=== PATIENT | male | born 1950 | race Caucasian/White ===

== ENCOUNTER → 2017-07-01 | Outpatient (CLI) | payer OTHER, MEDICARE | LOC: FCPNEURO 21:00 | PROVIDERS: ATTEND Psychiatry & Neurology Sleep Medicine | DX: G47.33 Obstructive sleep apnea (adult) (pediatric) (principal) ==

== ENCOUNTER → 2017-07-12 | Outpatient (CLI) | payer OTHER, MEDICARE | LOC: BMCIMAGING 11:08 | PROVIDERS: ATTEND Internal Medicine | DX: J98.4 Other disorders of lung (principal) ==

== ENCOUNTER 2017-11-15 19:07 | Emergency (ER) | payer OTHER, MEDICARE ==
--- NOTE | 2017-11-15 19:20 | EDPHY ---
HPI/HX/ROS/PE/MDM Narrative: CHIEF COMPLAINT: No bowl movement for 5 days HISTORY OF PRESENT ILLNESS: The patient is a 66 y/o male with a history of constipation, complaining of not having a bowel movement for 5 days. For the past several years he has had intermittent episodes of constipation. He was advised to take magnesium citrate which has relieved his symptoms in the past. 2.5 weeks ago he began to have a bowel movement once every 3 days associated with hard stools. Denies blood in stool. On Saturday evening, 5 days ago, he had an episode of diarrhea but has not had a bowel movement since. He has increased his water intake and ate a bowl of special K without relief of his symptoms. Today he wanted to take magnesium citrate but was concerned about an adverse reaction with his prescriptions. He is not in any pain currently. Denies having a colonoscopy. Reports he has had a chest cold for 4 days. No fever, chills, chest pain, shortness of breath, palpitations, vomiting, urinary complaints, headache, lightheadedness. REVIEW OF SYSTEMS: Aside from elements discussed in the HPI, a comprehensive 10-point review of systems was reviewed and is negative. 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 HEENT: Atraumatic. Eyes: No icterus, no injection. Mouth: moist mucous membranes. No erythema or lesions. Neck: supple with no adenopathy. LUNGS: Clear to auscultation bilaterally, no wheezes, rhonchi or rales. CARDIAC: Mild tachycardia, no rubs, murmurs or gallops. ABDOMEN: Soft, overweight, nontender, nondistended, bowel sounds normal. BACK: No CVA tenderness. EXTREMITIES: No trauma. No edema. Range of motion is normal throughout. NEURO: Alert and oriented, grossly nonfocal. SKIN: Warm and dry, no rash. PSYCHIATRIC: Normal mentation, no agitation. Portions of this note were transcribed by a medical assistant instructor. I personally performed a history, physical exam, medical decision making, and confirmed accuracy of information the transcribed note. ED Course: The patient is a 66 y/o male with a history of constipation, presenting with not having a bowel movement for 5 days. On exam he has no tenderness or vomiting. Labs ordered. 1L IV NS administered. 2033: Patient's labs are normal. His symptoms are consistent with constipation. 2049: Reassessed patient and discussed laboratory findings. I have advised him to have a colonoscopy as he has never had one. I have also advised him to take magnesium citrate, Metamucil or MiraLax, or other high-fiber supplements for his constipation. Return precautions provided; patient is comfortable wiht this plan. MDM: Diff dx considered included constipation, poor diet, hypokalemia, dehydration. - Data Points Laboratory Results: Laboratory Results 11/15/17 19:55 11/15/17 19:55 Medications Given: Discontinued Medications Sodium Chloride (Ns) 1,000 mls @ 0 mls/hr IV ONCE ONE; Wide Open PRN Reason: Protocol Stop: 11/15/17 19:40 Last Admin: 11/15/17 19:58 Dose: 1,000 mls General Time Seen by Provider: 11/15/17 19:19 Initial Vital Signs: Initial Vital Signs Temperature (C) 37.0 C 11/15/17 19:11 Heart Rate 101 H 11/15/17 19:11 Respiratory Rate 18 11/15/17 19:11 Blood Pressure 162/100 H 11/15/17 19:11 O2 Sat (%) 91 L 11/15/17 19:11 O2 Delivery Mode Room Air Allergies/Adverse Reactions: Penicillins Allergy (Verified 11/15/17 19:15) Home Medications: Medication Instructions Recorded Aspirin [Aspirin 81mg (OTC)] 81 mg PO DAILY 12/01/12 Atorvastatin Calcium [Lipitor 10 10 mg PO DAILY 12/01/12 mg (RX)] Herbals/Supplements -Info Only 1 each PO AD 12/01/12 Losartan Potassium [Cozaar] 25 mg PO DAILY 12/01/12 Rosuvastatin Calcium 5 mg PO 11/15/17 Departure - Departure Disposition: Home, Routine, Self-Care Clinical Impression: History of constipation Constipation Qualifiers: Constipation type: other constipation type Qualified Code(s): K59.09 - Other constipation Condition: Good Instructions: Constipation (ED) Additional Instructions: Take magnesium citrate as directed. Drink half the bottle, wait several hours. If you do not have some significant stool output, you may drink the other half. I encourage you to stay well hydrated. Consider daily Metamucil or MiraLax or other high-fiber supplement to keep your bowels regular. You do need to stay well hydrated when you take any of these medications. Please follow up with your primary care physician as needed and arrange a colonoscopy as soon as possible. Referrals: Rama Witt MD [Primary Care Provider] - As per Instructions Report Scribed for: Melissa Mckeon Report Scribed by: Tricia Mena Date of Report: 11/15/17 Time of Report: 19:19
[2017-11-15] MEDS ORDERED: NS 1,000 ML IV ONE (19:39)
[2017-11-15 20:08] LABS: PLATELET COUNT 232 10^3/uL (150-400)
[2017-11-15 20:55] VITALS: BP 147/92
== END 2017-11-15 20:55 | disposition home or self-care (01) ==
DX: K59.09 Other constipation (principal); I10 Essential (primary) hypertension; Z79.82 Long term (current) use of aspirin; Z87.19 Personal history of other diseases of the digestive system